=== PATIENT | female | born 1945 | race African-American/Black ===

== ENCOUNTER 2020-04-04 11:39 | Inpatient (IN) | payer SELFPAY ==
[~2020-04-04] VITALS: Ht 172.7 cm; Wt 65.8 kg
[2020-04-04 12:12] VITALS: Ht 172.7 cm; Wt 65.8 kg
[2020-04-04 12:34] LABS: PLATELET COUNT 299 x10^3mcL (179-408)
[2020-04-04 12:35] LABS: RED CELL DISTRIBUTION WIDTH 15.1 % (12.3-17.7)
[2020-04-04 14:14] LABS: CALCIUM 9.8 mg/dL (8.5-10.1); CARBON DIOXIDE 25.5 mmol/L (21-32); CHLORIDE SERUM 99 mmol/L (98-107); CREATININE SERUM 0.7 mg/dL (0.6-1.0); GLUCOSE SERUM 92 mg/dL (74-106); POTASSIUM SERUM 3.7 mmol/L (3.5-5.1); SODIUM SERUM 135 mmol/L (136-145)
[2020-04-04 14:21] LABS: ALBUMIN 4.3 g/dL (3.4-5.0); ALKALINE PHOSPHATASE 87 U/L (46-116); ALT/SGPT 25 U/L (14-59); AST/SGOT 35 U/L (15-37); BILIRUBIN TOTAL 0.6 mg/dL (0.20-1.00)
[2020-04-04 14:27] LABS: TOTAL PROTEIN, SERUM 8.6 g/dL (6.4-8.2)
[2020-04-04 22:54] VITALS: BP 145/79
[2020-04-05 04:59] VITALS: BP 122/47
[2020-04-05 14:46] VITALS: BP 159/73
[2020-04-05 18:34] VITALS: BP 158/63
[2020-04-05 22:41] VITALS: BP 149/58
[2020-04-06 05:21] VITALS: BP 150/80
[2020-04-06 07:46] LABS: CALCIUM 9.2 mg/dL (8.5-10.1); CHLORIDE SERUM 104 mmol/L (98-107); CREATININE SERUM 0.8 mg/dL (0.6-1.0); GLUCOSE SERUM 86 mg/dL (74-106); MAGNESIUM 2.2 mg/dL (1.8-2.4); PHOSPHOROUS 3.6 mg/dL (2.5-4.9); POTASSIUM SERUM 3.8 mmol/L (3.5-5.1); SODIUM SERUM 140 mmol/L (136-145)
[2020-04-06 07:53] LABS: PLATELET COUNT 219 x10^3mcL (179-408)
[2020-04-06 09:01] VITALS: BP 167/74
[2020-04-06 12:09] VITALS: BP 152/70
[2020-04-06 15:56] VITALS: BP 152/77
[2020-04-06 20:59] VITALS: BP 120/61
[2020-04-07 04:57] VITALS: BP 174/72
[2020-04-07 07:15] LABS: BASOPHIL % 1.1 % (0.2-1.3); PLATELET COUNT 233 x10^3mcL (179-408)
[2020-04-07 07:26] LABS: RED CELL DISTRIBUTION WIDTH 14.7 % (12.3-17.7)
[2020-04-07 07:44] LABS: CALCIUM 8.5 mg/dL (8.5-10.1); CARBON DIOXIDE 29.2 mmol/L (21-32); CHLORIDE SERUM 102 mmol/L (98-107); CREATININE SERUM 0.7 mg/dL (0.6-1.0); GLUCOSE SERUM 87 mg/dL (74-106); PHOSPHOROUS 3.4 mg/dL (2.5-4.9); POTASSIUM SERUM 3.8 mmol/L (3.5-5.1); SODIUM SERUM 139 mmol/L (136-145)
[2020-04-07 08:50] VITALS: BP 140/67
[2020-04-07 12:35] VITALS: BP 182/84
[2020-04-07 16:55] VITALS: BP 156/75
[2020-04-07 20:05] VITALS: BP 163/75
[2020-04-08 07:28] LABS: BASOPHIL % 1.1 % (0.2-1.3); PLATELET COUNT 245 x10^3mcL (179-408); RED CELL DISTRIBUTION WIDTH 14.5 % (12.3-17.7)
[2020-04-08 09:14] LABS: CALCIUM 9.2 mg/dL (8.5-10.1); CARBON DIOXIDE 27.5 mmol/L (21-32); CHLORIDE SERUM 101 mmol/L (98-107); CREATININE SERUM 0.7 mg/dL (0.6-1.0); GLUCOSE SERUM 90 mg/dL (74-106); MAGNESIUM 2.1 mg/dL (1.8-2.4); PHOSPHOROUS 4.3 mg/dL (2.5-4.9); POTASSIUM SERUM 4.2 mmol/L (3.5-5.1); SODIUM SERUM 140 mmol/L (136-145)
[2020-04-08 09:15] VITALS: BP 186/85
[2020-04-08 12:40] VITALS: BP 164/88
[2020-04-08 20:40] VITALS: BP 135/55
[2020-04-09 05:05] VITALS: BP 145/87
[2020-04-09 06:47] LABS: BASOPHIL % 1.1 % (0.2-1.3); PLATELET COUNT 217 x10^3mcL (179-408)
[2020-04-09 07:29] LABS: CALCIUM 8.5 mg/dL (8.5-10.1); CARBON DIOXIDE 27.2 mmol/L (21-32); CHLORIDE SERUM 104 mmol/L (98-107); CREATININE SERUM 0.7 mg/dL (0.6-1.0); GLUCOSE SERUM 84 mg/dL (74-106); MAGNESIUM 2.2 mg/dL (1.8-2.4); POTASSIUM SERUM 4.1 mmol/L (3.5-5.1); SODIUM SERUM 139 mmol/L (136-145)
[2020-04-09 08:08] LABS: RED CELL DISTRIBUTION WIDTH 14.8 % (12.3-17.7)
[2020-04-09 08:45] VITALS: BP 139/68
[2020-04-09 11:58] VITALS: BP 154/64
[2020-04-09 12:36] LABS: rbc morphology (normal/abnorm) NORMAL (NORMAL)
[2020-04-09 16:43] VITALS: BP 140/57
[2020-04-09 20:30] VITALS: BP 135/62
[2020-04-10 05:00] VITALS: BP 143/74
[2020-04-10 08:44] VITALS: BP 163/70
[2020-04-10 12:08] VITALS: BP 121/54
[2020-04-10 16:50] VITALS: BP 148/61
[2020-04-11 07:11] VITALS: BP 128/68
[2020-04-11 08:30] VITALS: BP 149/67
[2020-04-11 13:00] VITALS: BP 138/78
[2020-04-11 17:31] VITALS: BP 139/63
[2020-04-11 20:00] VITALS: BP 130/70
[2020-04-12 06:30] VITALS: BP 126/78
[2020-04-12 09:00] VITALS: BP 138/59
[2020-04-12 16:30] VITALS: BP 129/63
[2020-04-12 20:49] VITALS: BP 116/68
[2020-04-13 09:15] VITALS: BP 122/57
[2020-04-13 12:23] VITALS: BP 118/51
[2020-04-13 16:12] VITALS: BP 140/61
[2020-04-13] MEDS ORDERED: COZ50 PO (17:20)
[2020-04-13] MEDS ORDERED: ZYP5 PO (17:21)
[2020-04-13] MEDS ORDERED: THERA TABLET400 MCG PO (17:22)
[2020-04-13 21:01] VITALS: BP 126/77
[2020-04-14 08:55] VITALS: BP 126/71
== END 2020-04-14 09:33 | DRG 641 ==
LOC: ED 11:39 → EDBD 11:39 → ED 11:39 → MU 19:35
PROVIDERS: Emergency Medicine; Internal Medicine; ADMIT Family Medicine; ATTEND Family Medicine
DX: E87.1 Hypo-osmolality and hyponatremia (principal); Z20.822 Contact with and (suspected) exposure to COVID-19; Z59.0 Homelessness; I10 Essential (primary) hypertension; Z88.7 Allergy status to serum and vaccine; M54.9 Dorsalgia, unspecified; M25.571 Pain in right ankle and joints of right foot; F20.9 Schizophrenia, unspecified
CPT/HCPCS: 82962; 97110-GP; 97116-GP; 97530-GP; G0378; G0480; J3490; J7030; J7040; U0003